=== PATIENT | male | born 1985 | race Caucasian/White ===

== ENCOUNTER 2019-07-23 09:29 | Emergency (ER) | payer OTHER, SELFPAY ==
[2019-07-23] VITALS (7 sets, daily range): BP systolic 138–165; BP diastolic 88–105; PULSE 87–104; RESP 16–35; TEMP 36.7; O2SAT 95–99
--- NOTE | 2019-07-23 09:37 | ED.GENADULT ---
HPI - General Adult General Chief complaint: Chest Pain Stated complaint: feels like he's seeing things Time Seen by Provider: 07/23/19 09:30 Source: patient and family (Girlfriend) Mode of arrival: Ambulatory Limitations: no limitations History of Present Illness HPI narrative: 34-year-old male. Here for evaluation of what appears to be anxiety. Has a very difficult time describing why he is here with symptoms he is having. He is essentially talking in circles. States that he is remembering everything from when he was the age of 11 to the age of 31. He states things like ?everything needs that everything ?he does admit to being more anxious. This has been going on for past 3-4 days. But then he states that he was feeling anxious last week. Also states he is having chest pain and shortness of breath which seems to have gotten worse over the past couple days. No prior mental health diagnoses. Does not take any medicine. Does smoke marijuana and smoked marijuana this morning. Denies alcohol use. Denies quitting alcohol recently. Very difficult to obtain HPI. Related Data Previous Rx's Medication Instructions Recorded lorazepam [Ativan] 1 mg PO TID PRN #12 tab 07/23/19 Allergies Allergy/AdvReac Type Severity Reaction Status Date / Time No Known Drug Allergies Allergy Verified 07/23/19 09:53 Review of Systems Constitutional Constitutional: Denies fever(s) and Denies headache(s) Eyes Eyes: Denies change in vision ENT Ears, Nose, Mouth, and Throat: Denies vertigo, Denies dizziness and Denies headache(s) Cardiovascular Cardiovascular: Reports chest pain and Reports dyspnea Respiratory Respiratory: Reports dyspnea Gastrointestinal Gastrointestinal: Denies abdominal pain and Denies change in bowel habits Integumentary/Breasts Skin/Breast: Denies rash Neurologic Neurologic: Reports behavioral changes, Reports confusion, Denies vertigo, Denies dizziness and Denies headache(s) Psychiatric Psychiatric: Reports anxiety, Reports behavioral changes, Reports confusion and Reports panic attacks Hematologic/Lymphatic Hematologic/Lymphatic: Denies easy bleeding and Denies easy bruising Patient History Medical History Healthy adult (Acute) Social History Smoking Status: Former smoker Exam Initial Vital Signs Initial Vital Signs: Vital Signs Temperature 98.1 F 07/23/19 09:35 Pulse Rate 104 H 07/23/19 09:35 Respiratory Rate 35 H 07/23/19 09:35 Blood Pressure 164/105 H 07/23/19 09:35 Pulse Oximetry 99 07/23/19 09:35 Const General: cooperative Limitations: mental status not altered HENMT Head: normal to inspection and normocephalic Resp Effort & Inspection: normal respiratory effort Auscultation: clear to auscultation bilaterally Cardio Rate: tachycardic Rhythm: regular rhythm Skin Lesions: no lesions Rashes: no rashes Neuro General: patient alert, patient awake and patient oriented x3 Cognition: normal cognition Speech: speech normal Extrem General: capillary refill normal Psych Appearance: well kempt Speech and Movement: agitated, restless and speech not slurred Mood: anxious mood Affect: animated and anxious affect Attitude: cooperative Thought Process: circumstantial and flight of ideas Thought Content: no homicidality and suicidality Scores GCS [place] coma scale eye opening: Spontaneous Jey coma scale verbal response: Orientated Jey coma scale motor response: Obey commands Jey coma scale total score: 15 Course Orders Ordered: ED Orders 07/23/19 09:45 EKG-12 Lead Stat 07/23/19 09:47 Consult to SIMULATION TECH - Manual Arts Teacher Stat XR chest 1V Stat 07/23/19 10:10 Acetaminophen Stat Complete Blood Count AUTO DIFF Stat Comprehensive Metabolic Panel Stat Ethanol (ETOH) Stat Lipase Stat Salicylate Stat Thyroid Stimulating Hormone Stat Troponin I Stat 07/23/19 12:06 Urinalysis and Microscopic Stat Urine Drug Screen, Rapid Stat Discontinued Medications Sodium Chloride (Normal Saline 0.9%) 1,000 mls @ 1,000 mls/hr IV BOLUS ONE Stop: 07/23/19 10:46 Last Infusion: 07/23/19 12:04 Dose: 0 mls/hr Documented by: Admin: 07/23/19 10:08 Dose: 1,000 mls/hr Documented by: MYESHA Lorazepam (Ativan) 1 mg IV NOW ONE Stop: 07/23/19 10:02 Last Admin: 07/23/19 10:10 Dose: 1 mg Documented by: MYESHA Vital Signs Vital signs: Vital Signs - 8 hr 07/23/19 09:35 07/23/19 10:00 07/23/19 10:21 Temperature 98.1 F Pulse Rate 104 H 100 H Respiratory Rate 35 H 19 Blood Pressure 164/105 H Blood Pressure [Right Arm] 165/96 H Pulse Oximetry 99 95 07/23/19 10:30 07/23/19 11:18 07/23/19 11:50 Temperature Pulse Rate 93 H 93 H 88 Respiratory Rate 16 22 Blood Pressure Blood Pressure [Right Arm] 138/88 152/101 H 142/91 H Pulse Oximetry 98 97 96 07/23/19 13:00 Temperature Pulse Rate 87 Respiratory Rate 22 Blood Pressure Blood Pressure [Right Arm] 144/88 H Pulse Oximetry 99 Medical Decision Making Lab Data Lab results reviewed: Yes I reviewed the patient's lab results. Result diagrams: 07/23/19 10:10 07/23/19 10:10 Labs: Lab Results 07/23/19 07/23/19 07/23/19 Range/Units 10:10 10:10 10:10 WBC 9.4 (4.5-11.0) X10^3/uL RBC 5.17 (4.5-5.9) X10^6/uL Hgb 16.3 (13.5-17.5) g/dL Hct 47.3 (41-53) % MCV 91.5 (80-100) fL MCH 31.5 (26-34) PG MCHC 34.5 (30-36) % RDW 13.1 (11.6-14.8) % Plt Count 222 (150-400) X10^3/uL Neut % (Auto) 79.1 H (50-75) % Lymph % (Auto) 13.5 L (25-40) % [place] % (Auto) 6.2 (3-14) % Eos % (Auto) 1.0 L (2-4) % Baso % (Auto) 0.2 (0-2) % Neut # (Auto) 7400 H (4159-2600) /uL Lymph # (Auto) 1300 (2363-9607) /uL [place] # (Auto) 600 (0-900) /uL Eos # (Auto) 100 (0-450) /uL Baso # (Auto) 0 (0-100) /uL Sodium 139 (137-145) mmol/L Potassium 3.9 (3.4-5.1) mmol/L Chloride 105 (98-107) mmol/L Carbon Dioxide 25 (22-32) mmol/L BUN 13 (9-20) mg/dL Creatinine 0.93 (0.66-1.25) mg/dL Estimated GFR > 60.0 (>60) mL/min BUN/Creatinine Ratio 14.0 (6-22) Glucose 124 H (70-100) mg/dL Calcium 9.7 (8.4-10.2) mg/dL Total Bilirubin 1.2 (0.2-1.3) mg/dL AST 40 (17-59) IU/L ALT 46 (<50) IU/L Alkaline Phosphatase 57 (38-126) U/L Troponin I < 0.012 (0.01-0.034) ng/mL Total Protein 7.9 (6.3-8.2) g/dL Albumin 4.8 (3.5-5.0) g/dL Globulin 3.1 (1.7-4.1) g/dL Albumin/Globulin Ratio 1.5 (1.0-2.8) Lipase 30 (23-300) U/L TSH 2.05 (0.47-4.68) uIU/mL Urine Color Urine Appearance Urine pH (4.5-8.0) Ur Specific [place] (1.000-1.035) Urine Protein (Negative) Urine Glucose (UA) (Negative) g/dL Urine Ketones (NEGATIVE) Urine Occult Blood (Negative) Urine Nitrate (Negative) Urine Bilirubin (NEGATIVE) Urine Urobilinogen (0.2) E.U./dL Ur Leukocyte Esterase (NEGATIVE) Urine RBC (0-5/HPF) Urine WBC (0-5/HPF) Urine Bacteria (None) Urine Mucus (Negative) Ur Culture Indicated? Salicylates 1.0 (<20) mg/dL U Opiates 300ng/mL cut (Negative) Ur Oxycodone Screen (Negative) Urine Methadone Screen (Negative) Acetaminophen < 10 L (10-30) ug/mL Ur Barbiturates Screen (Negative) U Tricyclic Antidepress (Negative) Ur Phencyclidine Scrn (Negative) Ur Amphetamines Screen (Negative) U Methamphetamines Scrn (Negative) Ur MDMA Scrn (Ecstasy) (Negative) U Benzodiazepines Scrn (Negative) Urine Cocaine Screen (Negative) U Marijuana (THC) Screen (Negative) Ethyl Alcohol < 10 ( - 10) mg/dL 07/23/19 07/23/19 Range/Units 12:06 12:06 WBC (4.5-11.0) X10^3/uL RBC (4.5-5.9) X10^6/uL Hgb (13.5-17.5) g/dL Hct (41-53) % MCV (80-100) fL MCH (26-34) PG MCHC (30-36) % RDW (11.6-14.8) % Plt Count (150-400) X10^3/uL Neut % (Auto) (50-75) % Lymph % (Auto) (25-40) % [place] % (Auto) (3-14) % Eos % (Auto) (2-4) % Baso % (Auto) (0-2) % Neut # (Auto) (3846-7064) /uL Lymph # (Auto) (9639-0430) /uL [place] # (Auto) (0-900) /uL Eos # (Auto) (0-450) /uL Baso # (Auto) (0-100) /uL Sodium (137-145) mmol/L Potassium (3.4-5.1) mmol/L Chloride (98-107) mmol/L Carbon Dioxide (22-32) mmol/L BUN (9-20) mg/dL Creatinine (0.66-1.25) mg/dL Estimated GFR (>60) mL/min BUN/Creatinine Ratio (6-22) Glucose (70-100) mg/dL Calcium (8.4-10.2) mg/dL Total Bilirubin (0.2-1.3) mg/dL AST (17-59) IU/L ALT (<50) IU/L Alkaline Phosphatase (38-126) U/L Troponin I (0.01-0.034) ng/mL Total Protein (6.3-8.2) g/dL Albumin (3.5-5.0) g/dL Globulin (1.7-4.1) g/dL Albumin/Globulin Ratio (1.0-2.8) Lipase (23-300) U/L TSH (0.47-4.68) uIU/mL Urine Color Yellow Urine Appearance Clear Urine pH 7.0 (4.5-8.0) Ur Specific [place] 1.020 (1.000-1.035) Urine Protein Negative (Negative) Urine Glucose (UA) Negative (Negative) g/dL Urine Ketones 2+ H (NEGATIVE) Urine Occult Blood Negative (Negative) Urine Nitrate Negative (Negative) Urine Bilirubin Negative (NEGATIVE) Urine Urobilinogen 4.0 H (0.2) E.U./dL Ur Leukocyte Esterase Negative (NEGATIVE) Urine RBC None seen (0-5/HPF) Urine WBC 0-1/hpf (0-5/HPF) Urine Bacteria Few (2-10) H (None) Urine Mucus 1+ H (Negative) Ur Culture Indicated? Cult not indicated Salicylates (<20) mg/dL U Opiates 300ng/mL cut Negative (Negative) Ur Oxycodone Screen Negative (Negative) Urine Methadone Screen Negative (Negative) Acetaminophen (10-30) ug/mL Ur Barbiturates Screen Negative (Negative) U Tricyclic Antidepress Negative (Negative) Ur Phencyclidine Scrn Negative (Negative) Ur Amphetamines Screen Negative (Negative) U Methamphetamines Scrn Negative (Negative) Ur MDMA Scrn (Ecstasy) Negative (Negative) U Benzodiazepines Scrn Negative (Negative) Urine Cocaine Screen Negative (Negative) U Marijuana (THC) Screen Positive H (Negative) Ethyl Alcohol ( - 10) mg/dL Point of Care Testing Glucose POC 109 Point of care testing: Point of Care Testing Glucose POC 109 Imaging Data Chest x-ray: Radiologist's Impression: [address] [address] XRay Report Signed Patient: Ashwin Lindquist AMR#: [id number] : 1985Acct:[id number] Age/Sex: 34 / MDate of Service: 07/23/19 Loc: ED Accession Number: [id number] Procedure: XR chest 1V Ordering Provider: Lamberto Kaba D.O. PROCEDURE: XR CHEST 1V INDICATIONS: SOB TECHNIQUE: One view of the chest was acquired. COMPARISON: None. FINDINGS: Surgical changes and devices: None. Lungs and pleura: Lungs are clear considering relatively prominently reduced inspiration. The accuracy of interpretation is limited in this circumstance may be warranted to obtain deep inspiratory PA and lateral chest plain film.. No pleural effusions or pneumothorax. Mediastinum: Mediastinal contours appear normal. Heart size is normal. Bones and chest wall: No suspicious bony lesions. Overlying soft tissues appear unremarkable. IMPRESSION: Prominently reduced inspiratory volume limiting the accuracy of diagnosis. The appearance may simply represent sequela of crowding of the bronchovascular markings but obtaining a deep inspiratory PA and lateral chest plain film would be very helpful in more accurately assessing this patient. Dictated by: Rick Morgan M.D. on 07/23/2019 at 10:28 Approved by: Rick Morgan M.D. on 07/23/2019 at 10:29 ECG Data Attestation: I personally reviewed and interpreted this ECG as follows: Prior ECG tracings: not available for review Interpretation: Sinus rhythm Ventricular rate of 99 Left axis deviation Normal QRS Normal QTC No ST T wave changes MDM Narrative Medical decision making narrative: Patient did improve somewhat with the Ativan I do suspect that the majority of the patient's symptoms today are anxiety related probably made worse by smoking marijuana. Not suicidal. Not homicidal. Is alert oriented x3. GCS of 15. My plan is capacity to make decisions. Patient was evaluated by social work who agrees that patient does not meet inpatient criteria. Social work was able to set the patient up with a counselor at [facility]. Patient was given information regarding this. Was also given information regarding setting up health insurance. Will send home with some medication to help with anxiety. He was given return precautions. He expressed understanding and agreement. Discharge Plan Departure Patient Disposition: Home Clinical Impression: Anxiety Instructions: DI for Anxiety -- Adult Activity Restrictions/Additional Instructions: You were set up with a tele health meeting with [facility] counselor at 1000 hours on Friday07/26/19. This meeting will be through Zoom so you do need to download the [employer] Terry. Call the phone number that you were provided to help establish a primary provider. Use the medication that you were given today as needed and as directed. Return to the emergency department for any new symptoms Prescriptions: New lorazepam [Ativan] 1 mg tablet 1 mg PO TID PRN (Reason: anxiety) Qty: 12 RF: 0
--- NOTE | 2019-07-23 09:47 | DI.RAD.S_ITS ---
PROCEDURE: XR CHEST 1V INDICATIONS: SOB TECHNIQUE: One view of the chest was acquired. COMPARISON: None. FINDINGS: Surgical changes and devices: None. Lungs and pleura: Lungs are clear considering relatively prominently reduced inspiration. The accuracy of interpretation is limited in this circumstance may be warranted to obtain deep inspiratory PA and lateral chest plain film.. No pleural effusions or pneumothorax. Mediastinum: Mediastinal contours appear normal. Heart size is normal. Bones and chest wall: No suspicious bony lesions. Overlying soft tissues appear unremarkable. IMPRESSION: Prominently reduced inspiratory volume limiting the accuracy of diagnosis. The appearance may simply represent sequela of crowding of the bronchovascular markings but obtaining a deep inspiratory PA and lateral chest plain film would be very helpful in more accurately assessing this patient. Dictated by: Rick Morgan M.D. on 07/23/2019 at 10:28 Approved by: Rick Morgan M.D. on 07/23/2019 at 10:29
[2019-07-23] MEDS: SODIUM CHLORIDE 0.9% 1,000 ML 1000 ML IV (10:08)
[2019-07-23] MEDS: LORazepam 2 MG/ML INJ 1 MG IV (10:10)
[2019-07-23 10:21] LABS: Add Manual Diff / Slide Review NO; Basophils Absolute Auto 0 /uL (0-100); Basophils Percent Auto 0.2 % (0-2); Eosinophils Absolute Auto 100 /uL (0-450); Hematocrit 47.3 % (41-53); Hemoglobin 16.3 g/dL (13.5-17.5); Lymphocytes Absolute Auto 1300 /uL (1100-4500); Lymphocytes Percent Auto 13.5 % (25-40); Mean Corpuscular HGB Conc 34.5 % (30-36); Mean Corpuscular Hemoglobin 31.5 PG (26-34); Mean Corpuscular Volume 91.5 fL (80-100); Monocytes Absolute Auto 600 /uL (0-900); Monocytes Percent Auto 6.2 % (3-14); Neutrophils Absolute Auto 7400 /uL (1500-7000); Neutrophils Percent Auto 79.1 % (50-75); Platelet Count 222 X10^3/uL (150-400); Red Blood Cell Count 5.17 X10^6/uL (4.5-5.9); Red Cell Distribution Width 13.1 % (11.6-14.8); White Blood Cell Count 9.4 X10^3/uL (4.5-11.0)
[2019-07-23 10:36] LABS: Acetaminophen < 10 ug/mL (10-30); Alanine Aminotransferase 46 IU/L (<50); Albumin 4.8 g/dL (3.5-5.0); Albumin Globulin Ratio 1.5 (1.0-2.8); Alkaline Phosphatase 57 U/L (38-126); Aspartate Aminotransferase 40 IU/L (17-59); Bilirubin Total 1.2 mg/dL (0.2-1.3); Blood Urea Nitrogen 13 mg/dL (9-20); Calcium 9.7 mg/dL (8.4-10.2); Carbon Dioxide 25 mmol/L (22-32); Chloride 105 mmol/L (98-107); Estimated Glomerular Filt Rate > 60.0 mL/min (>60); Ethanol (ETOH) < 10 mg/dL; Globulin 3.1 g/dL (1.7-4.1); Glucose 124 mg/dL (70-100); HEMOLYSIS < 15 (0-50); Lipase 30 U/L (23-300); Potassium 3.9 mmol/L (3.4-5.1); Sodium 139 mmol/L (137-145); Total Protein 7.9 g/dL (6.3-8.2)
[2019-07-23 10:47] LABS: Troponin I < 0.012 ng/mL (0.01-0.034)
[2019-07-23 11:19] LABS: Thyroid Stimulating Hormone 2.05 uIU/mL (0.47-4.68)
--- NOTE | 2019-07-23 12:11 | PC.NURSE ---
pt refused to ambulate to bathroom. Given urinal to give urine sample. Pt then moved to 3 to wait until IUSS ACOUSTIC ANALYST can come and see him
[2019-07-23 12:15] LABS: RBC Urine None Seen (0-5/HPF)
[2019-07-23 12:16] LABS: Appearance Urine UA CLEAR; Bilirubin Urine UA NEGATIVE (NEGATIVE); Color Urine UA YELLOW; Glucose Urine UA NEGATIVE (Negative); Ketones Urine UA 2+ (NEGATIVE); Leukocyte Esterase Urine UA NEGATIVE (NEGATIVE); Nitrite Urine UA NEGATIVE (Negative); Occult Blood Urine UA NEGATIVE (Negative); Protein Urine UA NEGATIVE (Negative)
[2019-07-23 12:21] LABS: UR Morphine/Opiate cutoff 300 Negative (Negative); Ur Creatinine Normal (Normal); Ur Specific Gravity Normal (Normal); Urine Amphetamines Negative (Negative); Urine Barbiturates Negative (Negative); Urine Benzodiazepines Negative (Negative); Urine Cocaine Negative (Negative); Urine MDMA Negative (Negative); Urine Methadone Negative (Negative); Urine Methamphetamines Negative (Negative); Urine Oxycodone Negative (Negative); Urine Phencyclidine Negative (Negative); Urine Tetrahydrocannabinol Positive (Negative); Urine Tricyclic Antidepressant Negative (Negative); Urine pH Normal (Normal)
[2019-07-23 12:26] LABS: Bacteria Urine Few (2-10); Culture Indicated Urine Cult Not Indicated; Mucus Urine 1+ (Negative); WBC Urine 0-1/HPF (0-5/HPF)
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
== END 2019-07-23 13:55 | disposition home or self-care (01) ==
PROVIDERS: Emergency Provider Emergency Medicine
DX: F41.9 Anxiety disorder, unspecified (principal); R07.9 Chest pain, unspecified; R06.02 Shortness of breath
CPT/HCPCS: 36415; 71045; 80053; 80305; 80320; 80329; 81001; 82962; 83690; 84443; 84484; 85025; 93005; 93010; 96361; 96374; 99284; G0480; J2060

== ENCOUNTER 2019-07-24 18:26 | Emergency (ER) | payer OTHER, SELFPAY ==
[2019-07-24 18:37] VITALS: BP 161/97; PULSE 102; RESP 18; TEMP 36.8; O2SAT 94; BMI 44.3
--- NOTE | 2019-07-24 19:15 | ED.PSYCH ---
HPI - Psych <GEORGE Purvis - Last Filed: 07/24/19 22:09> General Chief Complaint: Psychiatric Symptoms Stated Complaint: hearing voices Time Seen by Provider: 07/24/19 19:02 Source: patient and family Mode of arrival: Ambulatory Limitations: no limitations History of Present Illness HPI Narrative: The patient is a 34-year-old former smoker with history of anxiety who presents with a chief complaint of paranoid thoughts. He is at this facility yesterday, seen and evaluated by social work and discharge with the plan for very close follow-up over early next week. Unfortunately since he went home, he has been feeling increasingly paranoid, especially at the store. He states that he thinks everybody is trying to send him to senior care for abusing children. He is very teary during my interview, difficult to obtain HPI. He denies any thoughts of wanting to hurt anybody else, but states he can understand ?why people commit suicide. He denies wanting to hurt himself, but is very frustrated with the situation and feels like he cannot live because he is so paranoid. He denies any illicit drug use. He denies any regular alcohol use. He states he does not know what to do from here and that he thinks that the police are going to come take him to senior care. He is accompanied by his girlfriend of 5 years, states that the patient is worried that his phone is blood, cannot go anywhere disease so paranoid and that she has never seen like this before. He states he has never felt was poorly before. Related Data Previous Rx's Medication Instructions Recorded lorazepam [Ativan] 1 mg PO TID PRN #12 tab 07/23/19 Allergies Allergy/AdvReac Type Severity Reaction Status Date / Time No Known Drug Allergies Allergy Verified 07/24/19 18:37 Review of Systems <GEORGE Purvis - Last Filed: 07/24/19 22:09> Review of Systems Narrative: GENERAL: Denies chills, fatigue, malaise, fever, sweats. HEENT: Denies sinus pain, ear pain, sore throat, difficulty swallowing, dizziness. RESPIRATORY: Denies dyspnea, cough, wheezing, hemoptysis, sputum. CARDIOVASCULAR: Denies chest pain, palpitations, orthopnea, edema, GASTROINTESTINAL: Denies nausea, vomiting, abdominal pain, diarrhea, constipation, melena. : Denies dysuria, frequency, incontinence, hematuria, urinary retention. MUSCULOSKELETAL: denies weakness, joint pain, or bony pain SKIN: Denies rash, skin lesions, or other NEUROLOGIC: Denies weakness, headache, numbness, change in speech, confusion, seizures, incoordination. PSYCHIATRIC: See HPI 12 point review of systems is negative except for those stated above Patient History <GEORGE Purvis - Last Filed: 07/24/19 22:09> Medical History (Updated 07/23/19 @ 10:20 by Lamberto Kaba DO) Healthy adult (Acute) Social History Smoking Status: Former smoker Smoking Status: Former smoker alcohol intake frequency: 0-2 drinks per day Substance Use Type: marijuana Exam <GEORGE Purvis - Last Filed: 07/24/19 22:09> Narrative Exam Narrative: GENERAL: This is a well-nourished, well-developed patient, teary HEAD: Atraumatic. Normocephalic. No temporal or scalp tenderness. EYES: Pupils equal round and reactive. Extraocular motions intact. No scleral icterus. No injection or drainage. ENT: Nose without bleeding, purulent drainage or septal hematoma. Throat without erythema, tonsillar hypertrophy or exudate. Uvula midline. Airway patent. NECK: Trachea midline. No JVD or lymphadenopathy. Supple, nontender, no meningeal signs. CARDIOVASCULAR: Regular rate and rhythm RESPIRATORY: Clear to auscultation. Breath sounds equal bilaterally. No wheezes, rales, or rhonchi. No cough. No increased respiratory effort. No accessory muscle use. GASTROINTESTINAL: Abdomen soft, non-tender, nondistended. No hepato-splenomegaly, or palpable masses. No guarding. EXTREMITIES: No clubbing, cyanosis, or edema. No joint tenderness, effusion, or edema noted. NEURO: AOx3. Teary, withdrawn. SKIN: No rash or erythema on visible skin Initial Vital Signs Initial Vital Signs: Vital Signs Temperature 98.3 F 07/24/19 18:37 Pulse Rate 102 H 07/24/19 18:37 Respiratory Rate 18 07/24/19 18:37 Blood Pressure 161/97 H 07/24/19 18:37 Pulse Oximetry 94 07/24/19 18:37 <Gordo Jones DO - Last Filed: 07/25/19 04:29> Initial Vital Signs Initial Vital Signs: Vital Signs Temperature 98.3 F 07/24/19 18:37 Pulse Rate 102 H 07/24/19 18:37 Respiratory Rate 18 07/24/19 18:37 Blood Pressure 161/97 H 07/24/19 18:37 Pulse Oximetry 94 07/24/19 18:37 Course <GEORGE Purvis - Last Filed: 07/24/19 22:09> Orders Ordered: ED Orders 07/24/19 20:26 Urine Drug Screen, Rapid Stat Urine Microscopic Stat 07/24/19 21:00 Acetaminophen Stat Complete Blood Count AUTO DIFF Stat Comprehensive Metabolic Panel Stat Ethanol (ETOH) Stat Salicylate Stat Thyroid Stimulating Hormone Stat Discontinued Medications Hydroxyzine Pamoate (Vistaril) 50 mg PO NOW ONE Stop: 07/24/19 19:18 Last Admin: 07/24/19 20:23 Dose: 50 mg Documented by: TIM Lorazepam (Ativan) 1 mg PO NOW ONE Stop: 07/24/19 19:18 Last Admin: 07/24/19 20:23 Dose: 1 mg Documented by: TIM Vital Signs Vital signs: Vital Signs - 8 hr 07/25/19 02:42 Pulse Rate 61 Respiratory Rate 16 Blood Pressure [Right Arm] 132/89 Pulse Oximetry 97 <Gordo Jones DO - Last Filed: 07/25/19 04:29> Orders Ordered: ED Orders 07/24/19 20:26 Urine Drug Screen, Rapid Stat Urine Microscopic Stat 07/24/19 21:00 Acetaminophen Stat Complete Blood Count AUTO DIFF Stat Comprehensive Metabolic Panel Stat Ethanol (ETOH) Stat Salicylate Stat Thyroid Stimulating Hormone Stat Discontinued Medications Hydroxyzine Pamoate (Vistaril) 50 mg PO NOW ONE Stop: 07/24/19 19:18 Last Admin: 07/24/19 20:23 Dose: 50 mg Documented by: TIM Lorazepam (Ativan) 1 mg PO NOW ONE Stop: 07/24/19 19:18 Last Admin: 07/24/19 20:23 Dose: 1 mg Documented by: TIM Vital Signs Vital signs: Vital Signs - 8 hr 07/25/19 02:42 Pulse Rate 61 Respiratory Rate 16 Blood Pressure [Right Arm] 132/89 Pulse Oximetry 97 [facility] - Psych <AICHA PurvisP-BC - Last Filed: 07/24/19 22:09> Lab Data Result diagrams: 07/24/19 21:00 07/24/19 21:00 Labs: Lab Results 07/24/19 07/24/19 07/24/19 Range/Units 20:26 20:26 21:00 WBC 11.0 (4.5-11.0) X10^3/uL RBC 5.54 (4.5-5.9) X10^6/uL Hgb 17.0 (13.5-17.5) g/dL Hct 50.6 (41-53) % MCV 91.5 (80-100) fL MCH 30.8 (26-34) PG MCHC 33.6 (30-36) % RDW 12.9 (11.6-14.8) % Plt Count 269 (150-400) X10^3/uL Neut % (Auto) 70.9 (50-75) % Lymph % (Auto) 22.1 L (25-40) % Winkler % (Auto) 5.7 (3-14) % Eos % (Auto) 0.9 L (2-4) % Baso % (Auto) 0.4 (0-2) % Neut # (Auto) 7800 H (3302-0801) /uL Lymph # (Auto) 2400 (0046-8677) /uL Winkler # (Auto) 600 (0-900) /uL Eos # (Auto) 100 (0-450) /uL Baso # (Auto) 0 (0-100) /uL Sodium (137-145) mmol/L Potassium (3.4-5.1) mmol/L Chloride (98-107) mmol/L Carbon Dioxide (22-32) mmol/L BUN (9-20) mg/dL Creatinine (0.66-1.25) mg/dL Estimated GFR (>60) mL/min BUN/Creatinine Ratio (6-22) Glucose (70-100) mg/dL Calcium (8.4-10.2) mg/dL Total Bilirubin (0.2-1.3) mg/dL AST (17-59) IU/L ALT (<50) IU/L Alkaline Phosphatase (38-126) U/L Total Protein (6.3-8.2) g/dL Albumin (3.5-5.0) g/dL Globulin (1.7-4.1) g/dL Albumin/Globulin Ratio (1.0-2.8) TSH (0.47-4.68) uIU/mL Urine RBC None seen (0-5/HPF) Urine WBC 1-5/hpf (0-5/HPF) Urine Bacteria Few (2-10) H (None) Urine Mucus 1+ H (Negative) Ur Culture Indicated? Cult not indicated Salicylates (<20) mg/dL U Opiates 300ng/mL cut Negative (Negative) Ur Oxycodone Screen Negative (Negative) Urine Methadone Screen Negative (Negative) Acetaminophen (10-30) ug/mL Ur Barbiturates Screen Negative (Negative) U Tricyclic Antidepress Negative (Negative) Ur Phencyclidine Scrn Negative (Negative) Ur Amphetamines Screen Negative (Negative) U Methamphetamines Scrn Negative (Negative) Ur MDMA Scrn (Ecstasy) Negative (Negative) U Benzodiazepines Scrn Negative (Negative) Urine Cocaine Screen Negative (Negative) U Marijuana (THC) Screen Positive H (Negative) Ethyl Alcohol ( - 10) mg/dL COVID-19 PCR 07/24/19 07/24/19 07/24/19 Range/Units 21:00 21:00 22:09 WBC (4.5-11.0) X10^3/uL RBC (4.5-5.9) X10^6/uL Hgb (13.5-17.5) g/dL Hct (41-53) % MCV (80-100) fL MCH (26-34) PG MCHC (30-36) % RDW (11.6-14.8) % Plt Count (150-400) X10^3/uL Neut % (Auto) (50-75) % Lymph % (Auto) (25-40) % Winkler % (Auto) (3-14) % Eos % (Auto) (2-4) % Baso % (Auto) (0-2) % Neut # (Auto) (8701-0303) /uL Lymph # (Auto) (5914-0437) /uL Winkler # (Auto) (0-900) /uL Eos # (Auto) (0-450) /uL Baso # (Auto) (0-100) /uL Sodium 141 (137-145) mmol/L Potassium 4.2 (3.4-5.1) mmol/L Chloride 105 (98-107) mmol/L Carbon Dioxide 25 (22-32) mmol/L BUN 13 (9-20) mg/dL Creatinine 1.01 (0.66-1.25) mg/dL Estimated GFR > 60.0 (>60) mL/min BUN/Creatinine Ratio 12.9 (6-22) Glucose 99 (70-100) mg/dL Calcium 10.2 (8.4-10.2) mg/dL Total Bilirubin 1.0 (0.2-1.3) mg/dL AST 39 (17-59) IU/L ALT 48 (<50) IU/L Alkaline Phosphatase 54 (38-126) U/L Total Protein 8.7 H (6.3-8.2) g/dL Albumin 5.1 H (3.5-5.0) g/dL Globulin 3.6 (1.7-4.1) g/dL Albumin/Globulin Ratio 1.4 (1.0-2.8) TSH 3.00 D (0.47-4.68) uIU/mL Urine RBC (0-5/HPF) Urine WBC (0-5/HPF) Urine Bacteria (None) Urine Mucus (Negative) Ur Culture Indicated? Salicylates < 1.0 (<20) mg/dL U Opiates 300ng/mL cut (Negative) Ur Oxycodone Screen (Negative) Urine Methadone Screen (Negative) Acetaminophen < 10 L (10-30) ug/mL Ur Barbiturates Screen (Negative) U Tricyclic Antidepress (Negative) Ur Phencyclidine Scrn (Negative) Ur Amphetamines Screen (Negative) U Methamphetamines Scrn (Negative) Ur MDMA Scrn (Ecstasy) (Negative) U Benzodiazepines Scrn (Negative) Urine Cocaine Screen (Negative) U Marijuana (THC) Screen (Negative) Ethyl Alcohol < 10 ( - 10) mg/dL COVID-19 PCR Cancelled 07/24/19 Range/Units 22:09 WBC (4.5-11.0) X10^3/uL RBC (4.5-5.9) X10^6/uL Hgb (13.5-17.5) g/dL Hct (41-53) % MCV (80-100) fL MCH (26-34) PG MCHC (30-36) % RDW (11.6-14.8) % Plt Count (150-400) X10^3/uL Neut % (Auto) (50-75) % Lymph % (Auto) (25-40) % Winkler % (Auto) (3-14) % Eos % (Auto) (2-4) % Baso % (Auto) (0-2) % Neut # (Auto) (4479-3884) /uL Lymph # (Auto) (6318-2675) /uL Winkler # (Auto) (0-900) /uL Eos # (Auto) (0-450) /uL Baso # (Auto) (0-100) /uL Sodium (137-145) mmol/L Potassium (3.4-5.1) mmol/L Chloride (98-107) mmol/L Carbon Dioxide (22-32) mmol/L BUN (9-20) mg/dL Creatinine (0.66-1.25) mg/dL Estimated GFR (>60) mL/min BUN/Creatinine Ratio (6-22) Glucose (70-100) mg/dL Calcium (8.4-10.2) mg/dL Total Bilirubin (0.2-1.3) mg/dL AST (17-59) IU/L ALT (<50) IU/L Alkaline Phosphatase (38-126) U/L Total Protein (6.3-8.2) g/dL Albumin (3.5-5.0) g/dL Globulin (1.7-4.1) g/dL Albumin/Globulin Ratio (1.0-2.8) TSH (0.47-4.68) uIU/mL Urine RBC (0-5/HPF) Urine WBC (0-5/HPF) Urine Bacteria (None) Urine Mucus (Negative) Ur Culture Indicated? Salicylates (<20) mg/dL U Opiates 300ng/mL cut (Negative) Ur Oxycodone Screen (Negative) Urine Methadone Screen (Negative) Acetaminophen (10-30) ug/mL Ur Barbiturates Screen (Negative) U Tricyclic Antidepress (Negative) Ur Phencyclidine Scrn (Negative) Ur Amphetamines Screen (Negative) U Methamphetamines Scrn (Negative) Ur MDMA Scrn (Ecstasy) (Negative) U Benzodiazepines Scrn (Negative) Urine Cocaine Screen (Negative) U Marijuana (THC) Screen (Negative) Ethyl Alcohol ( - 10) mg/dL COVID-19 PCR Negative Urine Dip Bedside Urine Glucose Negative Bedside Urine Bilirubin - Negative Bedside Urine Ketone ++ 40 Urine Specific Bruno 1.025 Bedside Urine Occult Blood - Negative Bedside Urine pH 6.0 Bedside Urine Protein +/- 15 Bedside Urine Urobilinogen 1+ 2mg Bedside Urine Nitrite - Negative Bedside Urine Leukocytes - Negative Esterase MDM Narrative Medical decision making narrative: The patient is a 34-year-old male who presents with a chief complaint of paranoia. He is voluntary at this point, denies any desire to harm himself or anybody else. He is willing to do voluntary inpatient admission. He was seen by Luis PANDA. There is availability at [facility], who is requesting rapid coated in order to admit the patient. Subsequently this was ordered. Patient is medically clear for voluntary admission. Labs will be faxed over when covid results then patient will have to do phone interview with [facility]. Patient signed out to Dr Jones at 22:00 and is ok with plan. <Gordo Jones, DO - Last Filed: 07/25/19 04:29> Lab Data Labs: Lab Results 07/24/19 07/24/19 07/24/19 Range/Units 20:26 20:26 21:00 WBC 11.0 (4.5-11.0) X10^3/uL RBC 5.54 (4.5-5.9) X10^6/uL Hgb 17.0 (13.5-17.5) g/dL Hct 50.6 (41-53) % MCV 91.5 (80-100) fL MCH 30.8 (26-34) PG MCHC 33.6 (30-36) % RDW 12.9 (11.6-14.8) % Plt Count 269 (150-400) X10^3/uL Neut % (Auto) 70.9 (50-75) % Lymph % (Auto) 22.1 L (25-40) % Winkler % (Auto) 5.7 (3-14) % Eos % (Auto) 0.9 L (2-4) % Baso % (Auto) 0.4 (0-2) % Neut # (Auto) 7800 H (2449-0896) /uL Lymph # (Auto) 2400 (7579-7070) /uL Winkler # (Auto) 600 (0-900) /uL Eos # (Auto) 100 (0-450) /uL Baso # (Auto) 0 (0-100) /uL Sodium (137-145) mmol/L Potassium (3.4-5.1) mmol/L Chloride (98-107) mmol/L Carbon Dioxide (22-32) mmol/L BUN (9-20) mg/dL Creatinine (0.66-1.25) mg/dL Estimated GFR (>60) mL/min BUN/Creatinine Ratio (6-22) Glucose (70-100) mg/dL Calcium (8.4-10.2) mg/dL Total Bilirubin (0.2-1.3) mg/dL AST (17-59) IU/L ALT (<50) IU/L Alkaline Phosphatase (38-126) U/L Total Protein (6.3-8.2) g/dL Albumin (3.5-5.0) g/dL Globulin (1.7-4.1) g/dL Albumin/Globulin Ratio (1.0-2.8) TSH (0.47-4.68) uIU/mL Urine RBC None seen (0-5/HPF) Urine WBC 1-5/hpf (0-5/HPF) Urine Bacteria Few (2-10) H (None) Urine Mucus 1+ H (Negative) Ur Culture Indicated? Cult not indicated Salicylates (<20) mg/dL U Opiates 300ng/mL cut Negative (Negative) Ur Oxycodone Screen Negative (Negative) Urine Methadone Screen Negative (Negative) Acetaminophen (10-30) ug/mL Ur Barbiturates Screen Negative (Negative) U Tricyclic Antidepress Negative (Negative) Ur Phencyclidine Scrn Negative (Negative) Ur Amphetamines Screen Negative (Negative) U Methamphetamines Scrn Negative (Negative) Ur MDMA Scrn (Ecstasy) Negative (Negative) U Benzodiazepines Scrn Negative (Negative) Urine Cocaine Screen Negative (Negative) U Marijuana (THC) Screen Positive H (Negative) Ethyl Alcohol ( - 10) mg/dL COVID-19 PCR 06/06/20 06/06/20 06/06/20 Range/Units 21:00 21:00 22:09 WBC (4.5-11.0) X10^3/uL RBC (4.5-5.9) X10^6/uL Hgb (13.5-17.5) g/dL Hct (41-53) % MCV (80-100) fL MCH (26-34) PG MCHC (30-36) % RDW (11.6-14.8) % Plt Count (150-400) X10^3/uL Neut % (Auto) (50-75) % Lymph % (Auto) (25-40) % Winkler % (Auto) (3-14) % Eos % (Auto) (2-4) % Baso % (Auto) (0-2) % Neut # (Auto) (6849-0946) /uL Lymph # (Auto) (5938-4174) /uL Winkler # (Auto) (0-900) /uL Eos # (Auto) (0-450) /uL Baso # (Auto) (0-100) /uL Sodium 141 (137-145) mmol/L Potassium 4.2 (3.4-5.1) mmol/L Chloride 105 (98-107) mmol/L Carbon Dioxide 25 (22-32) mmol/L BUN 13 (9-20) mg/dL Creatinine 1.01 (0.66-1.25) mg/dL Estimated GFR > 60.0 (>60) mL/min BUN/Creatinine Ratio 12.9 (6-22) Glucose 99 (70-100) mg/dL Calcium 10.2 (8.4-10.2) mg/dL Total Bilirubin 1.0 (0.2-1.3) mg/dL AST 39 (17-59) IU/L ALT 48 (<50) IU/L Alkaline Phosphatase 54 (38-126) U/L Total Protein 8.7 H (6.3-8.2) g/dL Albumin 5.1 H (3.5-5.0) g/dL Globulin 3.6 (1.7-4.1) g/dL Albumin/Globulin Ratio 1.4 (1.0-2.8) TSH 3.00 D (0.47-4.68) uIU/mL Urine RBC (0-5/HPF) Urine WBC (0-5/HPF) Urine Bacteria (None) Urine Mucus (Negative) Ur Culture Indicated? Salicylates < 1.0 (<20) mg/dL U Opiates 300ng/mL cut (Negative) Ur Oxycodone Screen (Negative) Urine Methadone Screen (Negative) Acetaminophen < 10 L (10-30) ug/mL Ur Barbiturates Screen (Negative) U Tricyclic Antidepress (Negative) Ur Phencyclidine Scrn (Negative) Ur Amphetamines Screen (Negative) U Methamphetamines Scrn (Negative) Ur MDMA Scrn (Ecstasy) (Negative) U Benzodiazepines Scrn (Negative) Urine Cocaine Screen (Negative) U Marijuana (THC) Screen (Negative) Ethyl Alcohol < 10 ( - 10) mg/dL COVID-19 PCR Cancelled 07/24/19 Range/Units 22:09 WBC (4.5-11.0) X10^3/uL RBC (4.5-5.9) X10^6/uL Hgb (13.5-17.5) g/dL Hct (41-53) % MCV (80-100) fL MCH (26-34) PG MCHC (30-36) % RDW (11.6-14.8) % Plt Count (150-400) X10^3/uL Neut % (Auto) (50-75) % Lymph % (Auto) (25-40) % Winkler % (Auto) (3-14) % Eos % (Auto) (2-4) % Baso % (Auto) (0-2) % Neut # (Auto) (8071-8048) /uL Lymph # (Auto) (4797-1370) /uL Winkler # (Auto) (0-900) /uL Eos # (Auto) (0-450) /uL Baso # (Auto) (0-100) /uL Sodium (137-145) mmol/L Potassium (3.4-5.1) mmol/L Chloride (98-107) mmol/L Carbon Dioxide (22-32) mmol/L BUN (9-20) mg/dL Creatinine (0.66-1.25) mg/dL Estimated GFR (>60) mL/min BUN/Creatinine Ratio (6-22) Glucose (70-100) mg/dL Calcium (8.4-10.2) mg/dL Total Bilirubin (0.2-1.3) mg/dL AST (17-59) IU/L ALT (<50) IU/L Alkaline Phosphatase (38-126) U/L Total Protein (6.3-8.2) g/dL Albumin (3.5-5.0) g/dL Globulin (1.7-4.1) g/dL Albumin/Globulin Ratio (1.0-2.8) TSH (0.47-4.68) uIU/mL Urine RBC (0-5/HPF) Urine WBC (0-5/HPF) Urine Bacteria (None) Urine Mucus (Negative) Ur Culture Indicated? Salicylates (<20) mg/dL U Opiates 300ng/mL cut (Negative) Ur Oxycodone Screen (Negative) Urine Methadone Screen (Negative) Acetaminophen (10-30) ug/mL Ur Barbiturates Screen (Negative) U Tricyclic Antidepress (Negative) Ur Phencyclidine Scrn (Negative) Ur Amphetamines Screen (Negative) U Methamphetamines Scrn (Negative) Ur MDMA Scrn (Ecstasy) (Negative) U Benzodiazepines Scrn (Negative) Urine Cocaine Screen (Negative) U Marijuana (THC) Screen (Negative) Ethyl Alcohol ( - 10) mg/dL COVID-19 PCR Negative Urine Dip Bedside Urine Glucose Negative Bedside Urine Bilirubin - Negative Bedside Urine Ketone ++ 40 Urine Specific Bruno 1.025 Bedside Urine Occult Blood - Negative Bedside Urine pH 6.0 Bedside Urine Protein +/- 15 Bedside Urine Urobilinogen 1+ 2mg Bedside Urine Nitrite - Negative Bedside Urine Leukocytes - Negative Esterase Discharge Plan Departure Prescriptions: No Action lorazepam [Ativan] 1 mg tablet 1 mg PO TID PRN (Reason: anxiety) Qty: 12 RF: 0 <Gordo Jones DO - Last Filed: 07/25/19 04:29> Cosign ED Attending Cosignature Attestation: I was immediately available in the department for consultation. This documentation has been reviewed and I agree with assessment and plan. Supervised by Gordo Jones DO
[2019-07-24] MEDS: LORazepam 0.5 MG TABLET 1 MG PO (20:23)
[2019-07-24] MEDS: hydrOXYzine pamoate 25 MG CAPSULE 50 MG PO (20:23)
[2019-07-24 20:43] LABS: RBC Urine None Seen (0-5/HPF)
[2019-07-24 20:53] LABS: Bacteria Urine Few (2-10); Culture Indicated Urine Cult Not Indicated; Mucus Urine 1+ (Negative); UR Morphine/Opiate cutoff 300 Negative (Negative); Ur Creatinine Normal (Normal); Ur Specific Gravity Normal (Normal); Urine Amphetamines Negative (Negative); Urine Barbiturates Negative (Negative); Urine Benzodiazepines Negative (Negative); Urine Cocaine Negative (Negative); Urine MDMA Negative (Negative); Urine Methadone Negative (Negative); Urine Methamphetamines Negative (Negative); Urine Oxycodone Negative (Negative); Urine Phencyclidine Negative (Negative); Urine Tetrahydrocannabinol Positive (Negative); Urine Tricyclic Antidepressant Negative (Negative); Urine pH Normal (Normal); WBC Urine 1-5/HPF (0-5/HPF)
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
[2019-07-24 21:20] LABS: Acetaminophen < 10 ug/mL (10-30); Alanine Aminotransferase 48 IU/L (<50); Albumin 5.1 g/dL (3.5-5.0); Albumin Globulin Ratio 1.4 (1.0-2.8); Alkaline Phosphatase 54 U/L (38-126); Aspartate Aminotransferase 39 IU/L (17-59); BUN Creatinine Ratio 12.9 (6-22); Blood Urea Nitrogen 13 mg/dL (9-20); Calcium 10.2 mg/dL (8.4-10.2); Carbon Dioxide 25 mmol/L (22-32); Chloride 105 mmol/L (98-107); Estimated Glomerular Filt Rate > 60.0 mL/min (>60); Ethanol (ETOH) < 10 mg/dL; Globulin 3.6 g/dL (1.7-4.1); Glucose 99 mg/dL (70-100); HEMOLYSIS < 15 (0-50); Potassium 4.2 mmol/L (3.4-5.1); Salicylate < 1.0 mg/dL (<20); Sodium 141 mmol/L (137-145); Total Protein 8.7 g/dL (6.3-8.2)
[2019-07-24 21:21] LABS: Add Manual Diff / Slide Review NO; Basophils Absolute Auto 0 /uL (0-100); Basophils Percent Auto 0.4 % (0-2); Eosinophils Absolute Auto 100 /uL (0-450); Eosinophils Percent Auto 0.9 % (2-4); Hematocrit 50.6 % (41-53); Lymphocytes Absolute Auto 2400 /uL (1100-4500); Lymphocytes Percent Auto 22.1 % (25-40); Mean Corpuscular HGB Conc 33.6 % (30-36); Mean Corpuscular Hemoglobin 30.8 PG (26-34); Mean Corpuscular Volume 91.5 fL (80-100); Monocytes Absolute Auto 600 /uL (0-900); Monocytes Percent Auto 5.7 % (3-14); Neutrophils Absolute Auto 7800 /uL (1500-7000); Neutrophils Percent Auto 70.9 % (50-75); Platelet Count 269 X10^3/uL (150-400); Red Blood Cell Count 5.54 X10^6/uL (4.5-5.9); Red Cell Distribution Width 12.9 % (11.6-14.8)
--- NOTE | 2019-07-24 22:19 | PC.NURSE ---
Patient is in his room. Girlfriend left and wanted to be updated at
[2019-07-25 01:35] LABS: COVID19 -Nasal RAPID Negative (Negative)
[2019-07-25 02:42] VITALS: BP 132/89; PULSE 61; RESP 16; O2SAT 97
== END 2019-07-25 03:35 ==
PROVIDERS: Nurse Practitioner Family; Emergency Provider Emergency Medicine
DX: F23 Brief psychotic disorder (principal); F22 Delusional disorders; Z11.59 Encounter for screening for other viral diseases
CPT/HCPCS: 36415; 80053; 80305; 80320; 80329; 81003; 81015; 84443; 85025; 87635; 99284; G0480

== ENCOUNTER → 2019-08-30 15:24 | Outpatient (CLI) | payer OTHER, MEDICAID, SELFPAY ==
[2019-08-31 09:52] LABS: COVID19 Sendout Not Detected (Not Detect)
== END ==
PROVIDERS: Visit Provider Student in an Organized Health Care Education/Training Program
DX: Z03.818 Encounter for observation for suspected exposure to other biological agents ruled out (principal)
CPT/HCPCS: 87635

== ENCOUNTER 2019-10-14 18:50 | Emergency (ER) | payer OTHER, MEDICAID, SELFPAY ==
[2019-10-14] VITALS (12 sets, daily range): BP systolic 130–141; BP diastolic 80–89; PULSE 65–102; RESP 20; TEMP 36.3; O2SAT 93–97; BMI 47.2
--- NOTE | 2019-10-14 19:08 | ED_ITS ---
HPI - Anxiety General Chief Complaint: Anxiety Stated Complaint: anxiety issues Time Seen by Provider: 10/14/19 19:00 Source: patient Mode of arrival: Ambulatory Limitations: no limitations History of Present Illness HPI narrative: 34-year-old male with a known history of anxiety. Was seen by myself several weeks ago and discharged after he felt better receiving Ativan here in the ER. He was seen a couple days later and was voluntarily admitted to a mental health facility for symptoms. He states at that time he stayed there for 3 days. He was ?observed ?was discharged. Since then he has had 2 follow- up visits with mental health provider however and has been several weeks/greater than 1 month since his last visit. He states he has been doing well since he was admitted to the hospital. He states this morning he woke up feeling very anxious and ?guilty ?he does not know what caused his symptoms. He did take an Ativan this morning without much improvement. He denies any alcohol use in the past 24 hours. Denies any marijuana use in the past 24 hours. No suicidal or homicidal ideation. Related Data Previous Rx's Medication Instructions Recorded lorazepam [Ativan] 1 mg PO TID PRN #12 tab 07/23/19 lorazepam [Ativan] 1 mg PO TID PRN #10 tab 10/14/19 Allergies Allergy/AdvReac Type Severity Reaction Status Date / Time No Known Drug Allergies Allergy Verified 10/14/19 18:56 Review of Systems Constitutional Constitutional: Denies fever(s) Cardiovascular Cardiovascular: Denies chest pain and Denies dyspnea Respiratory Respiratory: Denies dyspnea Gastrointestinal Gastrointestinal: Denies abdominal pain Integumentary/Breasts Skin/Breast: Denies lesions and Denies rash Neurologic Neurologic: Reports behavioral changes Psychiatric Psychiatric: Reports anxiety, Reports behavioral changes, Reports panic attacks, Denies homicidal ideation and Denies suicidal ideation Patient History Medical History Healthy adult (Acute) Social History Smoking Status: Former smoker Smoking Status: Former smoker alcohol intake frequency: 0-2 drinks per day Substance Use Type: marijuana Exam Initial Vital Signs Initial Vital Signs: Vital Signs Temperature 97.3 F L 10/14/19 18:56 Pulse Rate 102 H 08/27/20 18:56 Respiratory Rate 20 10/14/19 18:56 Blood Pressure 131/89 10/14/19 18:56 Pulse Oximetry 95 10/14/19 18:56 Const General: cooperative and comfortable Limitations: mental status not altered HENMT Head: normal to inspection and normocephalic Resp Effort & Inspection: normal respiratory effort Auscultation: clear to auscultation bilaterally Cardio Rate: tachycardic Rhythm: regular rhythm Skin Lesions: no lesions Neuro General: patient alert, patient awake and patient oriented x3 Cognition: normal cognition Speech: speech normal Sensory Exam: no sensory deficits noted Extrem General: capillary refill normal Psych Appearance: grossly normal and well kempt Speech and Movement: not agitated Mood: No angry Affect: anxious affect Attitude: cooperative Thought Process: normal Thought Content: suicidality Scores GCS Woodruff coma scale eye opening: Spontaneous Jey coma scale verbal response: Orientated Woodruff coma scale motor response: Obey commands Jey coma scale total score: 15 Course Orders Ordered: ED Orders 10/14/19 19:09 Consult to [facility] - Geospatial Developer Stat Discontinued Medications Lorazepam (Ativan) 1 mg PO NOW ONE Stop: 10/14/19 19:09 Last Admin: 10/14/19 19:14 Dose: 1 mg Documented by: SYED Vital Signs Vital signs: Vital Signs - 8 hr 10/14/19 18:56 10/14/19 19:08 10/14/19 19:30 Temperature 97.3 F L Pulse Rate 102 H 96 H 86 Respiratory Rate 20 Blood Pressure 131/89 Pulse Oximetry 95 94 93 10/14/19 19:31 10/14/19 20:00 10/14/19 20:01 Temperature Pulse Rate 90 86 82 Respiratory Rate Blood Pressure 139/80 138/89 Pulse Oximetry 96 95 95 10/14/19 20:30 10/14/19 20:31 10/14/19 21:00 Temperature Pulse Rate 77 84 79 Respiratory Rate Blood Pressure 141/80 H Pulse Oximetry 97 95 96 10/14/19 21:01 10/14/19 21:30 10/14/19 21:31 Temperature Pulse Rate 76 74 65 Respiratory Rate Blood Pressure 137/87 130/81 Pulse Oximetry 96 95 93 MDM - Anxiety MDM Narrative Medical decision making narrative: Patient was given Ativan in he stated that he felt better after this. He was also seen by mental health. I do not feel the patient needs admitted to the hospital. Patient does not want be admitted the hospital. He does have a provider with a [facility]. He was instructed to contact them tomorrow for a follow-up. He was given their phone numbers although he did state that he had them at home already. Will send home with short prescription of Ativan to use as needed. He was given return precautions and follow-up instructions. He expressed understanding and agreement. Discharge Plan Departure Patient Disposition: Home Clinical Impression: Acute anxiety Discharge Date/Time: 10/14/19 21:39 Instructions: Anxiety Disorders Activity Restrictions/Additional Instructions: The recommend that tomorrow you contact your primary provider and also your mental health provider/counselor/therapist at the [facility] in [place]. Return to the emergency department for any new or worsening symptoms Prescriptions: New lorazepam [Ativan] 1 mg tablet 1 mg PO TID PRN (Reason: anxiety) Qty: 10 RF: 0 No Action lorazepam [Ativan] 1 mg tablet 1 mg PO TID PRN (Reason: anxiety) Qty: 12 RF: 0
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
[2019-10-14] MEDS: LORazepam 0.5 MG TABLET 1 MG PO (19:14)
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
== END 2019-10-14 21:39 | disposition home or self-care (01) ==
PROVIDERS: Emergency Provider Emergency Medicine
DX: F41.9 Anxiety disorder, unspecified (principal)
CPT/HCPCS: 99283